=== PATIENT | female | born 1945 | race African-American/Black ===

== ENCOUNTER 2016-06-13 14:22 | Emergency (ER) | payer OTHER ==
[~2016-06-13] VITALS: Ht 154.9 cm; Wt 72.6 kg
[2016-06-13] MEDS ORDERED: NKM (14:40)
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
[2016-06-13] MEDS ORDERED: Acetaminophen 500mg (ES) tab ORAL ONE (15:00)
[2016-06-13] MEDS ORDERED: Bacitracin Oint UD TOPIC ONE (15:00)
[2016-06-13] MEDS ORDERED: HM DOUBLE ANT28.4 G1 TP (15:43)
[2016-06-13] MEDS ORDERED: TYLENOL EXTRA500 MG ORAL (15:43)
[2016-06-13 15:55] VITALS: BP 138/68
--- NOTE | 2016-06-13 17:21 | Diagnostic Imaging Report ---
Indications: Fall, left leg injury and pain Technique: 2 views left leg. Findings: Comparison: None No fracture, dislocation, joint space widening , surrounding soft tissue swelling/foreign body/other abnormality, or other acute changes are identified. IMPRESSION: No evidence of acute injury to the left leg.
--- NOTE | 2016-06-13 17:21 | Diagnostic Imaging Report ---
Indications: Fall, right leg injury and pain Technique: 2 views right leg. Findings: Comparison: None No fracture, dislocation, joint space widening , surrounding soft tissue swelling/foreign body/other abnormality, or other acute changes are identified. IMPRESSION: No evidence of acute injury to the right leg.
== END 2016-06-13 15:55 | disposition home or self-care (01) ==
LOC: EMR 15:25
DX: S80.812A Abrasion, left lower leg, initial encounter (principal); S80.811A Abrasion, right lower leg, initial encounter; W17.89XA Other fall from one level to another, initial encounter; Y93.9 Activity, unspecified; Y92.9 Unspecified place or not applicable; Y99.9 Unspecified external cause status; M79.662 Pain in left lower leg; M79.661 Pain in right lower leg
CPT/HCPCS: 99284

== ENCOUNTER 2018-06-03 12:46 | Emergency (ER) | payer MEDICARE ==
[~2018-06-03 12:46] MED LIST: BACTRIM DS TAB1 EAC1 ORAL; CEPHALEXIN500 MG ORAL; HM DOUBLE ANT28.4 G1 TP; HYDROCORTISONE30 G2 TP; MUPIROCIN22 GM TOPIC; NKM; TYLENOL EXTRA500 MG ORAL
--- NOTE | 2018-06-04 08:02 | Emergency Room Report ---
History of Present Illness General Chief Complaint: To Be Triaged Present Illness Allergies: Coded Allergies: No Known Allergies (Unverified , 06/13/16) Medical Decision Making Diagnostic Impression: Primary Impression: Injury of lower extremity Disposition: LEFT W/OUT BEING SEEN Condition: Unknown Referrals: NOT CHOSEN IPA/,REFERRING (PCP) Alexander Spann MD Jun 04, 2018 08:02
== END 2018-06-03 13:01 | disposition left against medical advice (07) ==
LOC: EMR 12:50
DX: S89.90XA Unspecified injury of unspecified lower leg, initial encounter (principal); Z53.21 Procedure and treatment not carried out due to patient leaving prior to being seen by health care provider

== ENCOUNTER 2018-08-19 19:32 | Emergency (ER) | payer MEDICARE ==
[~2018-08-19] VITALS: Ht 160 cm; Wt 54.4 kg
[2018-08-19] MEDS ORDERED: NKM (19:41)
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
[2018-08-19] MEDS ORDERED: TYLENOL EXTRA500 MG ORAL (19:58)
[2018-08-19] MEDS ORDERED: AMOXICILLIN500 MG ORAL (19:58)
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
[2018-08-19 20:00] VITALS: BP 150/85
[2018-08-19 20:22] VITALS: BP 140/83
--- NOTE | 2018-08-19 20:24 | NUR ---
Homeless Discharge: Patient is being discharged from medical care. Awake, alert and oriented x3. After care instructions, including referral to community resources were given. Patient verbalized understanding of After care instructions; at this time patient does not request medications, equipment or placement. Patient signed patient consent in the medical record for patient destination upon discharge. All medical devices such as ID band were removed. Patient ambulated out with all personal belongings with steady gait.
== END 2018-08-19 20:30 | disposition home or self-care (01) ==
LOC: EMR 20:00
DX: S00.93XA Contusion of unspecified part of head, initial encounter (principal); W19.XXXA Unspecified fall, initial encounter; Y92.811 Bus as the place of occurrence of the external cause; K04.7 Periapical abscess without sinus
CPT/HCPCS: 99282